=== PATIENT | female | born 1975 | race African-American/Black ===

== ENCOUNTER 2018-12-14 22:03 | Emergency (ER) | payer MEDICAID ==
[~2018-12-14] VITALS: Ht 165.1 cm; Wt 81.6 kg
[2018-12-14] MEDS ORDERED: diphenhydrAMINE 50 MG CAPSULE PO ONE (22:30)
[2018-12-14] MEDS ORDERED: ONDANSETRON ODT 4 MG TAB.RAPDIS SL ONE (22:30)
[2018-12-14] MEDS ORDERED: GABAPENTIN 300 MG CAPSULE PO ONE (22:30)
[2018-12-14] MEDS ORDERED: HYDROCODONE/APAP 10-325 MG TABLET PO ONE (22:30)
[2018-12-14] MEDS ORDERED: HYDROCODONE/APAP 10-325 MG TABLET ONE (22:31)
[2018-12-14] MEDS ORDERED: ONDANSETRON ODT 4 MG TAB.RAPDIS ONE (22:31)
[2018-12-14] MEDS ORDERED: GABAPENTIN 300 MG CAPSULE ONE (22:31)
[2018-12-14] MEDS ORDERED: diphenhydrAMINE 50 MG CAPSULE ONE (22:32)
--- NOTE | 2018-12-14 22:36 | NUR ---
Patient discharged to home in stable conditon. Written and verbal after care instructions given. Patient verbalizes understanding of instructions. Ambulated from ER with stable gait. Patient to be driven home by taxi. All belongings with patient.
[2018-12-14 22:39] VITALS: BP 127/78
== END 2018-12-14 22:39 | disposition home or self-care (01) ==
LOC: ER 22:10
DX: G89.4 Chronic pain syndrome (principal); M79.2 Neuralgia and neuritis, unspecified; M79.671 Pain in right foot; M79.672 Pain in left foot; F32.9 Major depressive disorder, single episode, unspecified; F41.9 Anxiety disorder, unspecified; F17.290 Nicotine dependence, other tobacco product, uncomplicated; Z71.6 Tobacco abuse counseling
CPT/HCPCS: 99284; 99406; Q0163; A4663; Q0162